=== PATIENT | female | born 1980 | race Caucasian/White ===

== ENCOUNTER 2018-11-24 09:52 | Outpatient (REF) | payer BC, SELFPAY ==
--- NOTE | 2018-11-24 09:30 | PAPFT_PTH ---
PATIENT: Raysa Duncan LOC: [facility] U#:[id number] AGE/SX: 37/F ROOM: RE11/24/[address]: ROSA ELENA Augustine : 1980 BED: DIS: 11/24/2018 SPEC #: [id number] RECD: 11/24/18 13:11 STATUS: EDGAR REQ #: [id number] COLLIN: 11/24/18 09:[address]: Viky Peguero DEPT: [facility] Cytology RECD BY: Yeimy Edwards ENTERED: 11/24/18 13:11 SP TYPE: PAPFT LEVI DR: None Tissues: 1 - CX/ENDOCX FOR PAP SMEARS Procedures: PAP THIN PREP/UVM Screening HPV DNA PROBE Comments: [id number]
== END 2018-11-24 10:12 ==
LOC: LBN 09:52
PROVIDERS: Visit Provider Nurse Practitioner Family
DX: Z12.4 Encounter for screening for malignant neoplasm of cervix (principal); Z11.51 Encounter for screening for human papillomavirus (HPV)
CPT/HCPCS: 88142; 87624

== ENCOUNTER 2019-12-28 01:02 | Outpatient (CLI) | payer BC, SELFPAY ==
--- NOTE | 2019-12-28 10:00 | DI.MAMMO_ITS ---
EXAM: MAMMO SCREENING CLINICAL HISTORY: screening TECHNIQUE: Mammograms were interpreted according to the usual protocol including computer analysis w [employer] CAD system, tomosynthesis and C-view imaging. COMPARISON: Baseline examination. FINDINGS: The breasts are composed of heterogeneously dense fibroglandular densities, Breast Density category C . No suspicious masses or suspicious microcalcifications are seen. No skin thickening or abnormal axillary lymph nodes are seen. There has been no significant change from prior exams. IMPRESSION: BI-RADS Category 1: Negative mammogram Yearly screening mammography is recommended. Breast Density Category C, heterogeneously dense tissue which decreases the sensitivity of the mammog jann. The mammogram demonstrates the patient's breast tissue is dense. Dense breast tissue is very common a nd is not abnormal but dense breast tissue can make it harder to find cancer on a mammogram. Also, de nse breast tissue may increase breast cancer risk. This information about the result of the mammogram report was provided to the patient to raise their awareness. Use this report when you speak with the patient about their risks for breast cancer, which includes their family history. At that time, you may recommend additional screening tests (Ultrasound or MRI) as they might be useful based on their r isk. A negative radiographic report should not delay biopsy if a dominant or clinically suspicious mass is present. Up to ten percent of cancers are not identified on mammography. A negative report may reinforce clinical impression. Adenosis and dense breasts may obscure an underlying neoplasm. False positive reports average 6 to 10%.
== END 2019-12-28 01:22 ==
PROVIDERS: PCP Internal Medicine; Visit Provider Nurse Practitioner Family
DX: Z12.31 Encounter for screening mammogram for malignant neoplasm of breast (principal); R92.2 Inconclusive mammogram
CPT/HCPCS: 77063; 77067

== ENCOUNTER 2021-01-30 01:20 | Outpatient (CLI) | payer BC, SELFPAY ==
--- NOTE | 2021-01-30 15:00 | DI.MAMMO_ITS ---
Exam(s) MAMMO SCREENING EXAM: MAMMO SCREENING CLINICAL HISTORY: screening. TECHNIQUE: Bilateral full field digital CC and MLO mammographic images were obtained with 3D tomosyn thesis and utilizing computer aided detection (CAD). COMPARISON: Prior baseline mammogram of December 2019. Her mother was diagnosed with breast cancer at age 50 FINDINGS: Fibroglandular tissue is again noted be moderately dense, this decreasing the sensitivity of the mamm ogram for finding hidden underlying lesions. There are no CAD designations. There are no new spiculated masses nor malignant appearing microcalcification groups. There is no significant architectural distortion nor skin thickening-retraction. IMPRESSION: Moderately dense fibroglandular tissue. No obvious radiographic evidence of malignancy nor significa nt change compared to the prior baseline mammogram of December 2019. BI-RADS Category 1 - Negative Breast Density - Category C - Heterogeneously dense Breast density Category C or D implies that the patient has dense breast tissue. Dense breast tissue can make it harder to find cancer on a mammogram. Dense breast tissue is also associated with an incr eased risk of breast cancer. This information about the result of the mammogram report was provided to the patient to raise their awareness. Use this report when you speak with the patient about their risks for breast cancer, which includes their family history. At that time, you may recommend additional screening tests (Ultrasoun d or MRI) as these tests may add significant information. A negative radiographic report should not delay biopsy if a dominant or clinically suspicious mass is present. Up to ten percent of cancers are not identified on mammography. A negative report may reinforce clinical impression. Adenosis and dense breasts may obscure an underlying neoplasm. False positive reports average 6 to 10%. Patient will receive a letter notifying them of these results.
== END 2021-01-30 01:40 ==
PROVIDERS: PCP Internal Medicine; Visit Provider Nurse Practitioner Family
DX: Z12.31 Encounter for screening mammogram for malignant neoplasm of breast (principal)
CPT/HCPCS: 77063; 77067

== ENCOUNTER 2022-01-05 12:58 | Outpatient (REF) | payer BC, SELFPAY ==
--- NOTE | 2022-01-05 09:30 | PAPFT_PTH ---
PATIENT: Raysa Duncan LOC: [facility] U#:[id number] AGE/SX: 41/F ROOM: RE01/05/[address]: ROSA ELENA Augustine : 1980 BED: DIS: 01/05/2022 SPEC #: [id number] RECD: 01/05/22 13:02 STATUS: EDGAR REJonas #: [id number] COLLIN: 01/05/22 09:[address]: Viky Peguero DEPT: [facility] Cytology RECD BY: Yeimy Edwards ENTERED: 01/05/22 13:02 SP TYPE: PAPFT OTHR DR: Yogi Leblanc Tissues: 1 - CX/ENDOCX FOR PAP SMEARS Procedures: PAP THIN PREP/UVM Screening HPV DNA PROBE Comments: [id number]
== END 2022-01-05 12:59 | disposition home or self-care (01) ==
LOC: LBN 12:58
PROVIDERS: PCP Internal Medicine; Visit Provider Nurse Practitioner Family
DX: Z12.4 Encounter for screening for malignant neoplasm of cervix (principal); Z11.51 Encounter for screening for human papillomavirus (HPV); N88.8 Other specified noninflammatory disorders of cervix uteri
CPT/HCPCS: 88142; 87624

== ENCOUNTER → 2022-02-02 00:08 | Outpatient (CLI) | payer BC, SELFPAY ==
--- NOTE | 2022-02-02 12:15 | DI.MAMMO_ITS ---
Exam(s) MAMMO SCREENING EXAM: MAMMO SCREENING CLINICAL HISTORY: screening TECHNIQUE: Mammograms were interpreted according to the usual protocol including computer analysis w [employer] CAD system, tomosynthesis and C-view imaging. COMPARISON: 2019 and 2020 FINDINGS: The breasts are composed of heterogeneously dense fibroglandular densities, Breast Density category C . No suspicious masses or suspicious microcalcifications are seen. No skin thickening or abnormal axillary lymph nodes are seen. There has been no significant change from prior exams. IMPRESSION: BI-RADS Category 1, Negative mammogram. Yearly screening mammography is recommended. Breast Density Category C, heterogeneously Dense. The mammogram demonstrates the patient's breast tissue is dense. Dense breast tissue is very common a nd is not abnormal but dense breast tissue can make it harder to find cancer on a mammogram. Also, de nse breast tissue may increase breast cancer risk. This information about the result of the mammogram report was provided to the patient to raise their awareness. Use this report when you speak with the patient about their risks for breast cancer, which includes their family history. At that time, you may recommend additional screening tests (Ultrasound or MRI) as they might be useful based on their r isk. A negative radiographic report should not delay biopsy if a dominant or clinically suspicious mass is present. Up to ten percent of cancers are not identified on mammography. A negative report may reinforce clinical impression. Adenosis and dense breasts may obscure an underlying neoplasm. False positive reports average 6 to 10%.
== END ==
PROVIDERS: PCP Internal Medicine; Visit Provider Nurse Practitioner Family
DX: Z12.31 Encounter for screening mammogram for malignant neoplasm of breast (principal); R92.8 Other abnormal and inconclusive findings on diagnostic imaging of breast
CPT/HCPCS: 77063; 77067

== ENCOUNTER → 2023-02-06 01:17 | Outpatient (CLI) | payer BC, SELFPAY ==
--- NOTE | 2023-02-06 15:45 | DI.MAMMO_ITS ---
Exam(s) MAMMO SCREENING EXAM: MAMMO SCREENING CLINICAL HISTORY: screening. TECHNIQUE: Bilateral full field digital CC and MLO mammographic images were obtained with 3D tomosyn thesis and utilizing computer aided detection (CAD). COMPARISON: Prior mammograms were reviewed. FINDINGS: The fibroglandular tissue pattern is again noted be moderately dense. There are no CAD designations. There are no new spiculated masses nor malignant appearing microcalcification groups. There is no significant architectural distortion nor skin thickening-retraction. IMPRESSION: No radiographic evidence of malignancy. BI-RADS Category 1 - Negative Breast Density - Category C - Heterogeneously dense Breast density Category C or D implies that the patient has dense breast tissue. Dense breast tissue can make it harder to find cancer on a mammogram. Dense breast tissue is also associated with an incr eased risk of breast cancer. This information about the result of the mammogram report was provided to the patient to raise their awareness. Use this report when you speak with the patient about their risks for breast cancer, which includes their family history. At that time, you may recommend additional screening tests (Ultrasoun d or MRI) as these tests may add significant information. A negative radiographic report should not delay biopsy if a dominant or clinically suspicious mass is present. Up to ten percent of cancers are not identified on mammography. A negative report may reinforce clinical impression. Adenosis and dense breasts may obscure an underlying neoplasm. False positive reports average 6 to 10%. Patient will receive a letter notifying them of these results.
== END ==
PROVIDERS: PCP Internal Medicine; Visit Provider Nurse Practitioner Women's Health
DX: Z12.31 Encounter for screening mammogram for malignant neoplasm of breast (principal)
CPT/HCPCS: 77063; 77067

== ENCOUNTER 2024-02-10 02:22 | Outpatient (CLI) | payer BC, SELFPAY ==
--- NOTE | 2024-02-10 09:00 | DI.MAMMO_ITS ---
Exam(s) MAMMO SCREENING EXAM: MAMMO SCREENING CLINICAL HISTORY: screening TECHNIQUE: Mammograms were interpreted according to the usual protocol including computer analysis w [employer] CAD system, tomosynthesis and C-view imaging. COMPARISON: 2019 through 2022 FINDINGS: The breasts are composed of heterogeneously dense fibroglandular densities, Breast Density category C . No suspicious masses or suspicious microcalcifications are seen. No skin thickening or abnormal axillary lymph nodes are seen. There has been no significant change from prior exams. IMPRESSION: BI-RADS Category 1, Negative mammogram. Yearly screening mammography is recommended. Breast Density Category C, heterogeneously Dense. The mammogram demonstrates the patient's breast tissue is dense. Dense breast tissue is very common a nd is not abnormal but dense breast tissue can make it harder to find cancer on a mammogram. Also, de nse breast tissue may increase breast cancer risk. This information about the result of the mammogram report was provided to the patient to raise their awareness. Use this report when you speak with the patient about their risks for breast cancer, which includes their family history. At that time, you may recommend additional screening tests (Ultrasound or MRI) as they might be useful based on their r isk. A negative radiographic report should not delay biopsy if a dominant or clinically suspicious mass is present. Up to ten percent of cancers are not identified on mammography. A negative report may reinforce clinical impression. Adenosis and dense breasts may obscure an underlying neoplasm. False positive reports average 6 to 10%.
== END 2024-02-10 02:42 ==
LOC: DI 02:23
PROVIDERS: PCP Internal Medicine; Visit Provider Nurse Practitioner Women's Health
DX: Z12.31 Encounter for screening mammogram for malignant neoplasm of breast (principal)
CPT/HCPCS: 77063; 77067

== ENCOUNTER 2024-11-12 16:40 | Outpatient (CLI) | payer BC, SELFPAY ==
--- NOTE | 2024-11-12 | DI.RAD_ITS ---
Exam(s) XR KNEE LT 3V AP,LAT,LILY EXAM: XR KNEE LT 3V AP,LAT,LILY CLINICAL HISTORY: M25.562 Pain in LT knee. TECHNIQUE: 2D digital imaging was performed. COMPARISON: No exams were available for comparison FINDINGS: 3 views There is no evidence of fracture but there is a significant joint effusion. No obvious degenerative changes. Tibial plateau is intact. Small benign bone island is noted in the lateral femoral condyle. No joint space narrowing. No osteophytes. Bone density normal IMPRESSION: No acute osseous findings. There is a joint effusion noted which signifies probable internal derangement. Can be further studied with MRI. DATA REPOSITORY: RADIATION DOSE DELIVERED:
== END 2024-11-12 17:00 ==
LOC: DI 16:41
PROVIDERS: PCP Internal Medicine; Visit Provider Physician Assistant Medical
DX: M25.562 Pain in left knee (principal)
CPT/HCPCS: 73562

== ENCOUNTER 2024-11-16 12:13 | Outpatient (CLI) | payer BC, SELFPAY ==
--- NOTE | 2024-11-16 | DI.MRI_ITS ---
Exam(s) MR LOWER JOINT LT WO EXAM: MR LOWER JOINT LT WO CLINICAL HISTORY: Acute pain of lt knee, M25.562 TECHNIQUE: Multiplanar multisequence MRI of the knee was performed. COMPARISON: CR XR KNEE LT 3V AP,LAT,LILY from 11/12/2024 FINDINGS: EFFUSION: There is a prominent knee joint effusion. Some synovial thickening is evident in the suprapatellar bursa. No obvious loose intra-articular bodies. There is no [place] cyst in the medial popliteal fossa. MARROW:There is significant bone contusion signal in both sides of the tibial plateau and in the mid aspect of the main weight-bearing surface of the lateral femoral condyle. There few subtle microtrabecular fracture line seen on T1 images but no evidence of depressed tibial plateau fracture. The fibular head and neck are also intact. There are no significant osseous lesions. PATELLOFEMORAL COMPARTMENT: The quadriceps tendon is intact. The patellar ligament is intact. There is no significant thinning of the retropatellar cartilage. No evidence of fissure nor significant chondral defect. No osteochondral defect at this level.Is very mild edema in the patella but no evidence of intraosseous signal abnormality to suggest recent patellar dislocation. CRUCIATE LIGAMENTS: There is a high-grade tear of the anterior cruciate ligament. The posterior cruciate ligament is intact. MEDIAL COMPARTMENT/MEDIAL MENISCUS: There are no tears of the medial meniscus evident.. There does not appear to be significant articular cartilage thinning in the medial compartment and there are no osteochondral defects. There is very mild subarticular bone edema and the outer aspect of the medial femoral condyle. No osteophytes. MEDIAL COLLATERAL LIGAMENT: There is partial tearing of the medial collateral ligament at its junction with the medial patellar retinaculum and adjacent to its medial femoral condylar attachment site. There is focal subcutaneous edema over the posterior aspect of the medial patellar retinaculum in this region. LATERAL COMPARTMENT/LATERAL MENISCUS: The posterior horn of the lateral meniscus is intact. There is some increased signal in the anterior horn of the lateral meniscus, probably contusion signal.. However, there is focal subarticular edema in the lateral femoral condyle immediately above of the anterior horn of the lateral meniscus which is part of the pivot shift contusion pattern. There is no distinct osteochondral defect at this level.No osteophytes in the lateral compartment. ILIOTIBIAL BAND: Intact LATERAL COLLATERAL LIGAMENT COMPLEX: The fibular collateral ligament is intact. The biceps femoris tendon is intact.Popliteus muscle and tendon are intact. IMPRESSION: 1. There is pivot shift bone contusion signal pattern and there is a high-grade tear of the anterior cruciate ligament. The posterior cruciate ligament is intact. 2. There is partial tearing of the medial collateral ligament at junction with the medial patellar retinaculum. There does not appear to be a full-thickness MCL tear. There are no tears of the components of the lateral collateral ligament complex. 3. There are no medial meniscal tears. There is signal abnormality in the anterior horn of the lateral meniscus which is probably meniscal contusion. Posterior horn of the lateral meniscus appears intact. 4. Retropatellar cartilage exhibits normal thickness and no osteochondral defects. 5. There is a prominent posttraumatic knee joint effusion. Synovial thickening is noted. There are no obvious loose intra-articular bodies. There is no obvious [place] cyst in the popliteal fossa. DATA REPOSITORY:
== END 2024-11-16 12:33 ==
LOC: DI 12:15
PROVIDERS: PCP Internal Medicine; Visit Provider Physician Assistant Medical
DX: S83.512A Sprain of anterior cruciate ligament of left knee, initial encounter (principal); X58.XXXA Exposure to other specified factors, initial encounter
CPT/HCPCS: 73721

== ENCOUNTER 2025-02-09 11:30 | Outpatient (REF) | payer BC, SELFPAY ==
--- NOTE | 2025-02-09 11:10 | PAPFT_PTH ---
PATIENT: Raysa Duncan LOC: [facility] U#:[id number] AGE/SX: 44/F ROOM: RE02/09/[address]: Chrissie Hanks NP : 1980 BED: DIS: 02/09/2025 SPEC #: [id number] RECD: 02/09/25 12:42 STATUS: EDGAR LUCERO #: [id number] COLLIN: 02/09/25 11:[address]: Latonya MACIEL,Chrissie DEPT: [facility] Cytology RECD BY: Yeimy Edwards ENTERED: 02/09/25 12:42 SP TYPE: PAPFT OTHR DR: Yogi Leblanc Tissues: 1 - CX/ENDOCX FOR PAP SMEARS Procedures: PAP THIN PREP/UVM Screening HPV DNA PROBE Comments: [id number] (HPV 16 & 18/45)
== END 2025-02-09 11:31 | disposition home or self-care (01) ==
LOC: LBN 11:30
PROVIDERS: PCP Internal Medicine; Visit Provider Nurse Practitioner Women's Health
DX: Z12.4 Encounter for screening for malignant neoplasm of cervix (principal)
CPT/HCPCS: 88142; 87624

== ENCOUNTER 2025-03-08 03:31 | Outpatient (CLI) | payer BC, SELFPAY ==
--- NOTE | 2025-03-08 09:15 | DI.MAMMO_ITS ---
Exam(s) MAMMO SCREENING EXAM: MAMMO SCREENING CLINICAL HISTORY: screening TECHNIQUE: Bilateral full field digital CC and MLO mammographic images were obtained with 3D tomosynthesis and utilizing computer aided detection (CAD). COMPARISON: Comparison is made with prior examinations. FINDINGS: Masses/Architectural Distortion: There is a question of a new 1 cm nodule in the posterior fibroglandular tissue on the left MLO view 9 cm from the nipple. There are no areas of architectural distortion. Microcalcifications: No suspicious pleomorphic-type are seen. Skin Thickening/Nipple Retraction: None. IMPRESSION: 1. Question new 1 cm nodule in posterior fibroglandular tissue on the left MLO view. 2. This area should be further evaluated with a spot compression view. Ultrasound may be indicated at that time. BI-RADS Category 0 - Incomplete: Need additional imaging evaluation Breast Density - Category C - The breast are heterogeneously dense, which may obscure small masses. Breast density Category C or D implies that the patient has dense breast tissue. Dense breast tissue can make it harder to find cancer on a mammogram. Dense breast tissue is also associated with an increased risk of breast cancer. This information about the result of the mammogram report was provided to the patient to raise their awareness. Use this report when you speak with the patient about their risks for breast cancer, which includes their family history. At that time, you may recommend additional screening tests (Ultrasound or MRI) as these tests may add significant information. A negative radiographic report should not delay biopsy if a dominant or clinically suspicious mass is present. Up to ten percent of cancers are not identified on mammography. A negative report may reinforce clinical impression. Adenosis and dense breasts may obscure an underlying neoplasm. False positive reports average 6 to 10%. Patient will receive a letter notifying them of these results.
== END 2025-03-08 03:51 ==
LOC: DI 03:31
PROVIDERS: PCP Internal Medicine; Visit Provider Nurse Practitioner Women's Health
DX: Z12.31 Encounter for screening mammogram for malignant neoplasm of breast (principal); R92.323 Mammographic fibroglandular density, bilateral breasts
CPT/HCPCS: 77063; 77067

== ENCOUNTER 2025-03-11 04:03 | Outpatient (CLI) | payer BC, SELFPAY ==
--- NOTE | 2025-03-11 | DI.MAMMO_ITS ---
Exam(s) MG MAMMO SCREEN CALL BACK UNI US BREAST LT COMPLETE EXAM: MG MAMMO SCREEN CALL BACK UNI-LEFT AND COMPLETE LEFT BREAST ULTRASOUND CLINICAL HISTORY: ? NEW 1CM NODULE POSTERIOR FIBROGLANDULAR TISSUE LEFT R92.8 ABNL MAMMO. TECHNIQUE: Unilateral LEFT BREAST spot mammographic images obtained with 3D tomosynthesisand utilizing computer aided detection (CAD). . Complete LEFT breast Ultrasound was also performed, including all 4 quadrants, the retroareolar region, and the ipsilateral axilla. COMPARISON: Prior mammograms were reviewed. This additional imaging was performed due to findings described on the recent screening mammogram of 03/08/2025. FINDINGS: DIAGNOSTIC MAMMOGRAM: Additional mammographic views performed todayrender this posterior area less concerning. We proceeded with ultrasound COMPLETE LEFT BREAST ULTRASOUND: Ultrasound performed today reveals no findings posteriorly to correspond to the nodule described posteriorly on the recent screening mammogram. This is possibly therefore benign mammary lymph node. At the 3 o'clock position there are 2 adjacent findings. There is a small benign conglomeration of microcysts measuring 4 x 5 mm. Adjacent to it is a single are benign microcyst measuring 4 mm. Scanning of the ipsilateral axilla reveals no significant adenopathy. IMPRESSION: 1. No radiographic evidence of malignancy. 2. Benign incidental ultrasound findings at the 3 o'clock position as described above. Appropriate follow-up is is to keep this patient on a yearly mammogram schedule. Recommend repeat ultrasound examination at the time of her next yearly mammogram, with earlier imaging if a self detected breast change is noted. The patient was informed of these findings and recommendations by myself prior to leaving the department today. BI-RADS Category 2 - Benign Findings Breast Density - Category C - The breast are heterogeneously dense, which may obscure small masses. Breast density Category C or D implies that the patient has dense breast tissue. Dense breast tissue can make it harder to find cancer on a mammogram. Dense breast tissue is also associated with an increased risk of breast cancer. This information about the result of the mammogram report was provided to the patient to raise their awareness. Use this report when you speak with the patient about their risks for breast cancer, which includes their family history. At that time, you may recommend additional screening tests (Ultrasound or MRI) as these tests may add significant information. A negative radiographic report should not delay biopsy if a dominant or clinically suspicious mass is present. Up to ten percent of cancers are not identified on mammography. A negative report may reinforce clinical impression. Adenosis and dense breasts may obscure an underlying neoplasm. False positive reports average 6 to 10%. Patient will receive a letter notifying them of these results.
== END 2025-03-11 04:23 ==
LOC: DI 04:03
PROVIDERS: PCP Internal Medicine; Visit Provider Nurse Practitioner Women's Health
DX: Z12.31 Encounter for screening mammogram for malignant neoplasm of breast (principal); R92.8 Other abnormal and inconclusive findings on diagnostic imaging of breast
CPT/HCPCS: 76642; 77063; 77067